=== PATIENT | male | born 1970 | race Hispanic/Latino ===

== ENCOUNTER 2022-10-10 01:49 | Inpatient (IN) | payer SELFPAY ==
[2022-10-10] MEDS ORDERED: Acetaminophen 500 MG TAB ONE (03:44)
[2022-10-10 04:29] LABS: INR-International Normal Ratio 1.3; PTT 36.5 sec (22.9-36.1); Prothrombin Time 16.5 sec (12.0-14.7)
[2022-10-10 04:36] LABS: ALT (SGPT) 25 U/L (8-55); AST (SGOT) 39 U/L (5-34); Albumin 4.4 g/dL (3.5-5.0); Alkaline Phosphatase 98 U/L (40-110); Anion Gap 15 mmol/L (10-20); BUN (Urea Nitrogen) 5 mg/dL (8.4-25.7); Bilirubin, Total 0.4 mg/dL (0.2-1.2); CK (CPK) 170 U/L (30-200); Calc. Creatinine Clearance 0 mL/min (70-130); Calcium 8.7 mg/dL (7.8-10.44); Carbon Dioxide 21 mmol/L (22-29); Chloride 107 mmol/L (98-107); Estimated GFR 106; Globulin 3.8 g/dL (2.4-3.5); Glucose 133 mg/dL (70-105); Potassium 3.5 mmol/L (3.5-5.1); Protein, Total 8.2 g/dL (6.0-8.3); Sodium 139 mmol/L (136-145)
[2022-10-10 04:38] LABS: Hemoglobin 6.2 g/dL (14.0-18.0); Mean Corpuscular HGB CONC 27.7 g/dL (32.0-36.0); Mean Corpuscular Hemoglobin 16.7 pg (27.0-31.0); Mean Corpuscular Volume 60.2 fl (78.0-98.0); RBC Distribution Width 23.9 % (11.5-14.5); Red Blood Cell (RBC) Count 3.75 mill/uL (4.70-6.10)
[2022-10-10 04:59] LABS: Hypochromia MARKED = >30 cells (100X) (0-5/hpf); Large Platelets SLIGHT; Lymphocytes 27 % (21-51); MDiff Complete? YES; Microcytosis MODERATE=15-30 cells (100X) (0-5/hpf); Monocytes 17 % (0-10); Neutrophil 56 % (42-75); Nucleated RBC 2 % (0); Platelet Count 263 10x3/uL (130-400); Platelet Morphology Comment Appears Adequate; Poikilocytosis SLIGHT = 6-15 cells (100X) (0-5/hpf); Polychromasia SLIGHT = 2-3 cells (100X) (0-2/hpf); Reflex for Review?? YES; Schistocytes SLIGHT = 2-5 cells (100X) (0-1/hpf); Target Cells MODERATE= 6-15 cells (100X) (0-1/hpf); White Blood Cell (WBC) Count 6.2 10x3/uL (4.8-10.8)
[2022-10-10] MEDS ORDERED: ANTIVENIN,CROTALIDAE (ANAVIP) 10 EACH in Sodium Chloride 0.9% 250 ML 250 ML IVPB SCH ×3 (06:00→15:00)
[2022-10-10] MEDS ORDERED: Senokot S 8.6-50 MG TAB PO PRN (07:48)
[2022-10-10] MEDS ORDERED: Acetaminophen 325 MG TAB PO PRN (07:48)
[2022-10-10 09:05] LABS: Platelet Count 242 10x3/uL (130-400)
[2022-10-10 09:12] LABS: INR-International Normal Ratio 1.3; PTT 37.5 sec (22.9-36.1)
[2022-10-10 09:23] LABS: Alcohol 149 mg/dL (Less than 10); Iron 26 ug/dL (65-175); Iron Binding Capacity, Total 598 mcg/dL (261-462)
[2022-10-10] MEDS: Folic Acid 1 MG, Thiamine HCl 100 MG in Dextrose 5 %-0.45 % NaCl 1,000 ML IV SCH (11:08)
[2022-10-10 11:20] LABS: Amphetamine Not Detected (NotDetected); Benzodiazepine Screen Not Detected (NotDetected); Cocaine Metabolite Screen Not Detected (NotDetected); Methadone Not Detected (NotDetected); Methamphetamine Not Detected (NotDetected); Opiate Screen Not Detected (NotDetected); Phencyclidine (PCP) Not Detected (NotDetected); THC/Cannabinoid Screen Detected (NotDetected); Tricyclic Screen Not Detected (NotDetected)
[2022-10-10 11:45] LABS: Barbiturates Screen Not Detected (NotDetected); Oxycodone Screen Not Detected (NotDetected)
[2022-10-10] MEDS ORDERED: FLU VACC QS2022-23(6MOS UP)/PF 60 MCG/0.5 ML SYRINGE IM ONE (11:45)
[2022-10-10 11:46] VITALS: BMI 30.4
[2022-10-10] MEDS ORDERED: ANTIVENIN,CROTALIDAE (ANAVIP) 4 EACH in Sodium Chloride 0.9% 250 ML 250 ML IVPB SCH (15:15)
[2022-10-10] MEDS: CEFAZOLIN 1 GM in Sodium Chloride 0.9% 100 ML IVPB SCH ×2 (15:19→22:42)
[2022-10-10 15:21] LABS: INR-International Normal Ratio 1.3; PTT 35.1 sec (22.9-36.1); Prothrombin Time 16.7 sec (12.0-14.7)
[2022-10-10] MEDS ORDERED: ISOVUE-370 76%-LOCM 1 ML ONE (15:24)
[2022-10-10 15:33] LABS: Platelet Count 227 10x3/uL (130-400)
[2022-10-11 00:18] LABS: Platelet Count 215 10x3/uL (130-400)
[2022-10-11 00:27] LABS: INR-International Normal Ratio 1.3; PTT 34.3 sec (22.9-36.1); Prothrombin Time 16.6 sec (12.0-14.7)
[2022-10-11 05:52] LABS: Hemoglobin 7.8 g/dL (14.0-18.0); Mean Corpuscular Hemoglobin 18.8 pg (27.0-31.0); Mean Corpuscular Volume 64.9 fl (78.0-98.0); Mean Platelet Volume 6.3 fL (7.4-10.4); Platelet Count 221 10x3/uL (130-400); RBC Distribution Width 26.3 % (11.5-14.5); Red Blood Cell (RBC) Count 4.17 mill/uL (4.70-6.10)
[2022-10-11 05:57] LABS: INR-International Normal Ratio 1.3; Prothrombin Time 16.4 sec (12.0-14.7)
[2022-10-11 06:09] LABS: Anion Gap 11 mmol/L (10-20); BUN (Urea Nitrogen) 6 mg/dL (8.4-25.7); Calc. Creatinine Clearance 169 mL/min (70-130); Calcium 8.8 mg/dL (7.8-10.44); Carbon Dioxide 23 mmol/L (22-29); Chloride 107 mmol/L (98-107); Estimated GFR 110; Glucose 106 mg/dL (70-105); Potassium 3.6 mmol/L (3.5-5.1); Sodium 137 mmol/L (136-145)
[2022-10-11] MEDS: CEFAZOLIN 1 GM in Sodium Chloride 0.9% 100 ML IVPB SCH ×3 (06:13→21:11)
[2022-10-11 06:26] LABS: Anisocytosis MODERATE=16-30 cells (100X) (0-5/hpf); Band 2 % (5-11); Eosinophils 4 % (0-10); Hypochromia MARKED = >30 cells (100X) (0-5/hpf); Lymphocytes 28 % (21-51); MDiff Complete? YES; Microcytosis MODERATE=15-30 cells (100X) (0-5/hpf); Monocytes 7 % (0-10); Neutrophil 59 % (42-75); Nucleated RBC 4 % (0); Target Cells SLIGHT = 2-5 cells (100X) (0-1/hpf); Tear Drops SLIGHT = 2-5 cells (100X) (0-1/hpf); White Blood Cell (WBC) Count 8.3 10x3/uL (4.8-10.8)
[2022-10-11] MEDS: Folic Acid 1 MG, Thiamine HCl 100 MG in Dextrose 5 %-0.45 % NaCl 1,000 ML IV SCH (13:47)
[2022-10-11] MEDS: Ferrous Sulfate 325 MG TAB PO SCH (17:51)
[2022-10-12] MEDS: CEFAZOLIN 1 GM in Sodium Chloride 0.9% 100 ML IVPB SCH ×2 (05:36→13:09)
[2022-10-12] MEDS: HYDROcodone/Acetaminophen 5/325 mg Tablet PO PRN ×2 (05:45→17:26)
[2022-10-12] MEDS: Ferrous Sulfate 325 MG TAB PO SCH ×2 (08:37→17:25)
[2022-10-12] MEDS: Folic Acid 1 MG, Thiamine HCl 100 MG in Dextrose 5 %-0.45 % NaCl 1,000 ML IV SCH (10:21)
[2022-10-12 11:40] LABS: Hemoglobin 7.7 g/dL (14.0-18.0); Mean Corpuscular HGB CONC 28.5 g/dL (32.0-36.0); Mean Corpuscular Hemoglobin 18.6 pg (27.0-31.0); Mean Corpuscular Volume 65.2 fl (78.0-98.0); Mean Platelet Volume 6.8 fL (7.4-10.4); Platelet Count 252 10x3/uL (130-400); RBC Distribution Width 27.3 % (11.5-14.5); Red Blood Cell (RBC) Count 4.15 mill/uL (4.70-6.10); White Blood Cell (WBC) Count 10.2 10x3/uL (4.8-10.8)
[2022-10-12 12:32] LABS: Anisocytosis MARKED = >30 cells (100X) (0-5/hpf); Band 4 % (5-11); Eosinophils 6 % (0-10); Hypochromia MARKED = >30 cells (100X) (0-5/hpf); Lymphocytes 22 % (21-51); MDiff Complete? YES; Microcytosis MODERATE=15-30 cells (100X) (0-5/hpf); Monocytes 15 % (0-10); Neutrophil 52 % (42-75); Nucleated RBC 4 % (0); Platelet Morphology Comment Appears Adequate; Polychromasia MODERATE = 3-4 cells (100X) (0-2/hpf); Spherocytes SLIGHT = 1-5 cells (100X) (None Seen); Target Cells MODERATE= 6-15 cells (100X) (0-1/hpf)
[2022-10-12 12:41] VITALS: BP 152/67; TEMP 98.6
== END 2022-10-12 17:57 | disposition home or self-care (01) | DRG 918 ==
LOC: ERS 01:49 → 2SW 05:55 → OBSVTOIN 10-11 11:39
PROVIDERS: ADMIT Internal Medicine; ATTEND Internal Medicine
PROC: 30233N1 Transfusion of Nonautologous Red Blood Cells into Peripheral Vein, Percutaneous Approach (ICD-10-PCS; principal; 2022-10-10)
DX: T63.091A Toxic effect of venom of other snake, accidental (unintentional), initial encounter (principal); K92.2 Gastrointestinal hemorrhage, unspecified; L03.116 Cellulitis of left lower limb; Z20.822 Contact with and (suspected) exposure to COVID-19; F10.10 Alcohol abuse, uncomplicated; Z71.41 Alcohol abuse counseling and surveillance of alcoholic; Z90.81 Acquired absence of spleen; Z80.1 Family history of malignant neoplasm of trachea, bronchus and lung; D50.9 Iron deficiency anemia, unspecified
CPT/HCPCS: 36415; 36430; 74177; 80048; 80053; 80306; 80307; 82274; 82550; 83540; 83550; 85025; 85060; 85384; 85610; 85730; 86850; 86900; 86901; 96375; 96376; G0378; J0690; J0841; J3411; J3490; J7042; J7050; P9016; Q9966; U0003; U0005